=== PATIENT | male | born 1965 ===

== ENCOUNTER → 2021-12-15 07:15 | Outpatient (CLI) | payer BC, SELFPAY ==
--- NOTE | ~2021-12-15 | XR_ITS ---
EXAMINATION: XR sacroiliac joints min 3V INDICATION: Lumbar herniated disc TECHNIQUE: Three views of the sacroiliac joints are obtained. COMPARISON: None available FINDINGS: Bone alignment is normal. There is no fracture. No abnormal sclerosis or erosion of the sac roiliac joints is seen. There is mild osteoarthritis of the hips. IMPRESSION: 1. No acute osseous abnormality. Reviewed, dictated and finalized at location A.
--- NOTE | ~2021-12-15 | XR_ITS ---
EXAMINATION: XR lumbar spine 2-3V DATE: 12/15/2021 07:46 INDICATION: Low back pain, lumbar herniated disc TECHNIQUE: Anteroposterior and lateral views of the lumbar spine, and cone-down lateral view of the l umbosacral junction were obtained. COMPARISON: None. FINDINGS: There is no fracture, dislocation, or subluxation. The vertebral body heights are maintaine d. There is mild loss of intervertebral disc space height throughout the lumbar spine. Small degenera tive osteophytes project from the anterior endplates of multiple vertebral bodies. Mild facet osteoar thritis is noted in the lower lumbar spine. Surgical clips in the right upper quadrant are likely fro m prior cholecystectomy. There is a moderate volume of colonic stool. IMPRESSION: 1. Mild lumbar spondylosis without acute findings. Reviewed, dictated and finalized at location A.
== END ==
PROVIDERS: PCP Family Medicine; Visit Provider Nurse Practitioner Family
DX: M16.0 Bilateral primary osteoarthritis of hip (principal); M47.816 Spondylosis without myelopathy or radiculopathy, lumbar region
CPT/HCPCS: 72100; 72202

== ENCOUNTER 2023-03-30 02:27 | Day surgery (SDC) | payer BC, SELFPAY ==
[2023-03-20 14:27] VITALS: BMI 25.4
[2023-03-30 09:08] VITALS: BP 105/56; PULSE 76; RESP 18; TEMP 36.3; O2SAT 99
[2023-03-30] MEDS: LACTATED RINGERS 1,000 ML 150 ML IV CONT (09:20)
--- NOTE | 2023-03-30 09:34 | PM.HPGS ---
History of Present Illness History of Present Illness Consent: Risks, benefits, and alternatives have been discussed and questions answered. Patient agrees to proceed with procedure. Chief complaint: neoplasm screening Narrative: Jose Wilson is a 58 year old male Presents for screening colonoscopy. Patient's current weight appetite and bowel movements are normal. Patient denies abdominal pain. He has had no bleeding. Family history noncontributory. Patient states previous colonoscopy 8 or 9 years prior to this was unremarkable. Review of Systems Review of Systems: review of systems noncontributory. [facility] Family History Family History (Updated 05/01/14 @ 07:13 by DOCTOR UNKNOWN) Father Cerebrovascular accident Mother Acute myocardial infarction Social History Social History Smoking status: Never smoker Smokeless tobacco user: chewing tobacco Alcohol intake: current Drinks per week: 3 Substance use: never Substance use type: does not use Living arrangements: with family Spiritual care concerns: No Meds Home Medications and Allergies Home Medications Medication Instructions Recorded Confirmed Type No Home Medications 03/30/23 03/30/23 History Allergies Allergy/AdvReac Type Severity Reaction Status Date / Time No Known Allergies Allergy Unknown Verified 03/30/23 09:07 Vital Signs Vital Signs - 24 hr 03/30/23 09:08 Temperature 97.3 F L Pulse Rate 76 Respiratory Rate 18 Blood Pressure 105/56 L Pulse Oximetry 99 Oxygen Delivery Room Air Exam Narrative: Physical exam reveals patient to be alert. Vital signs stable. HEENT exam is unremarkable. Patient is anicteric. Lungs are clear to auscultation and percussion. Heart is without murmur or extra sounds. Abdomen bowel sounds are present soft nontender with no organomegaly. Digital external rectal exam is normal. Assessment and Plan Assessment and plan (1) Encounter for screening colonoscopy: Code(s): Z12.11 - Encounter for screening for malignant neoplasm of colon Status: Acute Assessment and Plan: Patient presents today for screening colonoscopy. He appears to be at average risk for colon polyps. Further recommendations may be given after endoscopy.
--- NOTE | 2023-03-30 09:44 | WPDANESEPPF ---
Anes - Initial Pre Proc Eval Procedure: Operation Date: 03/30/23 10:30 Proposed Procedures p Screening Colonoscopy - Zafar Goel MD Date/Time: 03/30/23 09:44 Surgeon: Zafar Goel MD Pre Op Diagnosis: neoplasm screening Patient Data Age: 58 Gender: M Height: 1.83 m Weight: 81.5 kg Last Vital Signs Temp 97.3 F L 03/30/23 09:08 Pulse 76 03/30/23 09:08 Resp 18 03/30/23 09:08 BP 105/56 L 03/30/23 09:08 Pulse Ox 99 03/30/23 09:08 O2 Del Method Room Air 03/30/23 09:08 Allergies Allergy/AdvReac Type Severity Reaction Status Date / Time No Known Allergies Allergy Unknown Verified 03/30/23 09:07 Home Medications Medication Instructions Recorded Confirmed Type No Home Medications 03/30/23 03/30/23 History Patient hx anesthesia problems: none Family hx anesthesia problems: none Results Review: All pre-operative results and documents have been reviewed as part of the pre-operative evaluation. [facility] Family History Family History (Updated 05/01/14 @ 07:13 by DOCTOR UNKNOWN) Father Cerebrovascular accident Mother Acute myocardial infarction Social History Social History Smoking status: Never smoker Smokeless tobacco user: chewing tobacco Alcohol intake: current Drinks per week: 3 Substance use: never Substance use type: does not use Living arrangements: with family Spiritual care concerns: No Anes - Eval Final PreProcedure Day of Procedure 03/30/23 09:44 Patient weight: normal Heart: regular rate and rhythm Lungs: clear to auscultation Airway: Mallampati scale class II Neurological: alert and oriented Last oral intake: >/= 8 hours ASA classification: I Emergent: no Anesthetic plan: proceed Anesthesia type and monitoring: general GIVS and standard monitoring Results Review: All pre-operative results and documents have been reviewed as part of the pre-operative evaluation. Informed Consent: The patient's anesthetic plan and its attendant risks and benefits were discussed with the patient/family/POA. Questions were solicited and answers provided to the satisfaction of the patient/family/POA.
[2023-03-30] MEDS: SIMETHICONE ORAL SUSPENSION 20 MG/0.3 ML 30 ML BOTTLE 0.6 ML IRRIGATION (10:39)
[2023-03-30 10:49] VITALS: BP 119/75; PULSE 71; RESP 21; O2SAT 97
[2023-03-30 10:59] VITALS: BP 115/74; PULSE 61; RESP 12; O2SAT 99
[2023-03-30 11:09] VITALS: BP 117/76; PULSE 61; RESP 17; O2SAT 100
== END 2023-03-30 11:14 | disposition home or self-care (01) ==
PROVIDERS: PCP Family Medicine; Visit Provider Internal Medicine Gastroenterology
PROC: 0DJD8ZZ Inspection of Lower Intestinal Tract, Via Natural or Artificial Opening Endoscopic (ICD-10-PCS; CPT 45378; principal; 2023-03-30 10:30)
DX: Z12.11 Encounter for screening for malignant neoplasm of colon (principal); K64.8 Other hemorrhoids; F17.220 Nicotine dependence, chewing tobacco, uncomplicated
CPT/HCPCS: 45378; J2704; J7120